=== PATIENT | male | born 1980 | race Hispanic/Latino ===

== ENCOUNTER 2017-07-07 22:38 | Inpatient (IN) | payer SELFPAY ==
[2017-07-07 23:49] LABS: Basophils % (Auto) 0.4 % (0.0-1.8); Eosinophils % (Auto) 4.1 % (0.0-4.3); Hematocrit 46.9 % (35.5-45.6); Hemoglobin 15.3 gm/dl (11.8-15.2); Mean Corpuscular HGB Conc 33 % (32-34); Mean Corpuscular Hemoglobin 29 pg (28-32); Mean Corpuscular Volume 90 fl (84-94); Platelet Count 261 K/mm3 (140-440); Red Blood Count 5.23 M/mm3 (3.65-5.03); Red Cell Distribution Width 13.1 % (13.2-15.2); White Blood Count 10.6 K/mm3 (4.5-11.0)
[2017-07-08 00:06] LABS: Anion Gap 19 mmol/L; BUN/Creatinine Ratio 20; Blood Urea Nitrogen 14 mg/dL (9-20); Calcium 9.1 mg/dL (8.4-10.2); Carbon Dioxide 24 mmol/L (22-30); Chloride 101.7 mmol/L (98-107); Glucose 131 mg/dL (75-100); Potassium 4.2 mmol/L (3.6-5.0); Sodium 140 mmol/L (137-145)
[2017-07-08] MEDS ORDERED: ASPIRIN PO ONE (01:41)
--- NOTE | 2017-07-08 01:42 | Emergency Department Report ---
ED Chest Pain HPI - General Chief Complaint: Chest Pain Stated Complaint: CHEST PAIN Source: patient Mode of arrival: Ambulatory Limitations: No Limitations - History of Present Illness Initial Comments: Patient is a 37-year-old male that presents to the ER with left-sided chest pain. Patient states the pain started at 1500 today and feels like a heaviness and pressure over his left chest. Patient have any significant medical history but patient has not seen a physician for multiple years. Patient denies shortness of breath. Patient states she took 2- 81 mg aspirin today at 1600 with minimal relief. Patient states the chest pain is constant, . But is worse with exertion and better with rest. MD Complaint: chest pain -: Sudden, hour(s) (8 hours) Onset: during rest, during exertion Pain Location: substernal, left chest Pain Radiation: none Severity: moderate Severity scale (0 -10): 5 Quality: tightness, heaviness, pressure Consistency: constant Improves With: rest, remaining still Worsens With: exertion, movement Treatments Prior to Arrival: none Aspirin use within the Past 7 Days: (1) Yes - Related Data On Oral Contraceptives: No Allergies Allergy/AdvReac Type Severity Reaction Status Date / Time mint leaves Allergy Itching Uncoded 07/07/17 23:15 Heart Score - HEART Score History: Slightly suspicious EKG: Normal Age: < 45 Risk factors: No known risk factors Troponin: < normal limit HEART Score: 0 - Critical Actions Critical Actions: 0-3 pts:0.9-1.7%risk of adverse cardiac event.Candidate for discharge ED Review of Systems ROS: Stated complaint: CHEST PAIN Other details as noted in HPI Comment: All other systems reviewed and negative Constitutional: no symptoms reported Respiratory: no symptoms reported Cardiovascular: as per HPI, chest pain Endocrine: no symptoms reported ED Past Medical Hx - Past Medical History Hx Asthma: Yes Additional medical history: kidney stones - Surgical History Additional Surgical History: tonsillectomy - Social History Smoking Status: Former Smoker Substance Use Type: None ED Physical Exam - General Limitations: No Limitations General appearance: alert, in no apparent distress - Head Head exam: Present: atraumatic, normocephalic - Eye Eye exam: Present: normal appearance - ENT ENT exam: Present: mucous membranes moist - Neck Neck exam: Present: normal inspection - Respiratory Respiratory exam: Present: normal lung sounds bilaterally. Absent: respiratory distress - Cardiovascular Cardiovascular Exam: Present: regular rate, normal rhythm. Absent: systolic murmur, diastolic murmur, rubs, gallop - GI/Abdominal GI/Abdominal exam: Present: soft, normal bowel sounds - Rectal Rectal exam: Present: deferred - Extremities Exam Extremities exam: Present: normal inspection - Back Exam Back exam: Present: normal inspection - Neurological Exam Neurological exam: Present: alert, oriented X3 - Psychiatric Psychiatric exam: Present: normal affect, normal mood - Skin Skin exam: Present: warm, dry, intact, normal color. Absent: rash ED Course Vital Signs 07/07/17 07/08/17 07/08/17 22:55 01:47 01:48 Temperature 98.2 F 98.7 F Pulse Rate 92 H 81 Respiratory 18 20 20 Rate Blood Pressure 140/91 Blood Pressure 122/71 [Right] O2 Sat by Pulse 98 98 98 Oximetry BRENDAN score - Brendan Score Age > 65: (0) No Aspirin use within the Past 7 Days: (1) Yes 3 or more CAD Risk Factors: (0) No 2 or more Angina events in past 24 hrs: (0) No Known CAD with more than 50% Stenosis: (0) No Elevated Cardiac Markers: (0) No ST Deviation Greater than 0.5mm: (0) No BRENDAN Score: 1 ED Medical Decision Making - Lab Data Result diagrams: 07/07/17 23:17 07/07/17 23:17 - EKG Data -: EKG Interpreted by Me EKG shows normal: sinus rhythm Rate: normal - EKG Data Interpretation: no acute changes, normal EKG - Medical Decision Making 37-year-old male presented with chest pain. Patient has had one set of EKGs and cardiac enzymes. Will consult hospitalist for admission to rule out ACS. Hospitalist agreed to admit. - Differential Diagnosis cp/ chest wall pain. acs, elevated bp Critical care attestation.: If time is entered above; I have spent that time in minutes in the direct care of this critically ill patient, excluding procedure time. ED Disposition Clinical Impression: Chest pain, Elevated blood pressure reading Disposition: OP ADMIT IP TO THIS HOSP Is pt being admited?: Yes Does the pt Need Aspirin: No Condition: Fair Time of Disposition: 01:51
[2017-07-08] MEDS ORDERED: PERCOCET 5/325 PO PRN (02:40)
[2017-07-08] MEDS ORDERED: TYLENOL PO PRN (02:40)
[2017-07-08] MEDS ORDERED: ZOFRAN IV PRN (02:40)
[2017-07-08] MEDS ORDERED: DULCOLAX PR PRN (02:40)
[2017-07-08] MEDS ORDERED: MILK OF MAGNESIA PO PRN (02:40)
--- NOTE | 2017-07-08 03:14 | History and Physical Report ---
History of Present Illness Date of examination: 07/08/17 History of present illness: 37-year-old man with no medical problems comes emergency room with complaints of chest pain located in the left chest which she describes a dull pain, constant, intensity 4/10, no radiation, he can identify exacerbating or relieving factors. Denies nausea vomiting, shortness breath, diaphoresis or palpitation. Stated he was moving heavy boxes a few days prior to chest pain Review Of Systems: Constitutional: no weight loss Ears, eyes, nose, mouth and throat: no nasal congestion, no nasal discharge, no sinus pressure, blurry vision, diplopia Neck: No neck pain or rigidity. Cardiovascular: no orthopnea, palpitations Respiratory: No shortness of breath, cough Gastrointestinal: no abdominal pain, hematochezia Genitourinary : no dysuria, frequency , hematuria Musculoskeletal: no muscle ache Integumentary: no rash, no pruritis Neurological: no parathesias, focal weakness Endocrine: no cold or heat intolerance, no polyuria or polydipsia Hematologic/Lymphatic: no easy bruising, no easy bleeding, no gland swelling Allergic/Immunologic: no urticaria, no angioedema. PAST MEDICAL HISTORY:none PAST SURGICAL HISTORY:none FAMILY HISTORY:hypertension, no CAD SOCIAL HISTORY: Denies alcohol, tobacco, drugs Medications and Allergies Allergies Allergy/AdvReac Type Severity Reaction Status Date / Time mint leaves Allergy Itching Uncoded 07/07/17 23:15 Home Medications Medication Instructions Recorded Confirmed Last Taken Type No Known Home Medications [No 07/08/17 07/08/17 Unknown History Reported Home Medications] Active Meds: Active Medications Acetaminophen (Tylenol) 650 mg PO Q4H PRN PRN Reason: Pain MILD(1-3)/Fever >100.5/JACKSON Bisacodyl (Dulcolax) 10 mg NM QDAY PRN PRN Reason: Constipation unrelieved by MOM Enoxaparin Sodium (Lovenox) 30 mg SUB-Q QDAY BETTY Magnesium Hydroxide (Milk Of Magnesia) 30 ml PO Q4H PRN PRN Reason: Constipation Ondansetron HCl (Zofran) 4 mg IV Q8H PRN PRN Reason: N/V unrelieved by Reglan Oxycodone/Acetaminophen (Percocet 5/325) 1 tab PO Q6H PRN PRN Reason: Pain, Moderate (4-6) Exam - Physical Exam Narrative exam: Gen. appearance: Patient lying in bed in no acute distress HEENT: Normocephalic/atraumatic, pupils equal round reactive to light, extra alkaline movement intact, no scleral icterus, no JVD or thyromegaly or nodule, neck is supple, mucous membrane moist, no erythema or exudate Heart: S1-S2, regular rate and rhythm Lungs: Clear to auscultation bilateral breathing comfortable Abdomen: Positive bowel sounds, nontender, nondistended, no organomegaly Extremities: No edema, cyanosis, clubbing Neuro:: Oriented 3 , cranial nerves II-12 intact, speech, motor intact Skin: No rash, nodules, warm dry - Constitutional Vitals: Temp Pulse Resp BP Pulse Ox 98.7 F 81 20 122/71 98 07/08/17 01:47 07/08/17 01:47 07/08/17 01:48 07/08/17 01:47 07/08/17 01:48 Results - Labs CBC & Chem 7: 07/07/17 23:17 07/07/17 23:17 Labs: Abnormal lab results 07/07/17 07/07/17 Range/Units 23:17 23:17 RBC 5.23 H (3.65-5.03) M/mm3 Hgb 15.3 H (11.8-15.2) gm/dl Hct 46.9 H (35.5-45.6) % RDW 13.1 L (13.2-15.2) % Lymph % (Auto) 40.1 H (13.4-35.0) % Donley % (Auto) 9.8 H (0.0-7.3) % Donley # 1.0 H (0.0-0.8) K/mm3 Creatinine 0.7 L (0.8-1.5) mg/dL Glucose 131 H (75-100) mg/dL - Imaging and Cardiology EKG: image reviewed Assessment and Plan Assessment Hypertensive urgency Chest pain Plan Admit to medicine Check cardiac enzymes, stress test Start IV hydralazine as needed DVT prophylaxis
[2017-07-08 04:14] LABS: Creatine Kinase 58 units/L (55-170); Creatine Kinase MB < 1.0 ng/mL (0.0-4.0)
[2017-07-08 07:31] VITALS: BP 125/77
[2017-07-08 07:46] LABS: Creatine Kinase 64 units/L (55-170)
[2017-07-08 07:50] LABS: Creatine Kinase MB < 1.0 ng/mL (0.0-4.0)
--- NOTE | 2017-07-08 08:57 | XRay Report ---
CHEST ONE VIEW INDICATION: Chest pain. COMPARISON: None similar. FINDINGS: Portable, single, frontal chest radiograph demonstrates normal cardiomediastinal silhouette. Clear lungs. Unremarkable bones. Extrinsic EKG leads. CONCLUSION: No acute disease in the chest. Thank you for the opportunity to participate in this patient's care.
[2017-07-08] MEDS ORDERED: LOVENOX SUB-Q SCH ×2 (10:00)
[2017-07-08] MEDS ORDERED: Fluarix Quad 2017-2018(36 MOS+ IM ONE (12:00)
--- NOTE | 2017-07-08 12:57 | Discharge Summary ---
Providers - Providers Date of Admission: 07/08/17 02:40 Date of discharge: 07/08/17 Attending physician: LEIGHANN MRAISCAL Primary care physician: [facility] [employer] Hospitalization Condition: Fair Disposition: DC-01 TO HOME OR SELFCARE Exam - Constitutional Vitals: Temp Pulse Resp BP Pulse Ox 98.5 F 82 18 125/77 97 07/08/17 03:52 07/08/17 04:45 07/08/17 04:47 07/08/17 03:52 07/08/17 03:52 Plan Activity: no restrictions Diet: low fat, low cholesterol, low salt Additional Instructions: 1.Follow up with PCP or [facility] in 1 week. Prescriptions: Ibuprofen 600 mg PO TID PRN #20 tablet PRN Reason: Pain
--- NOTE | 2017-07-09 00:23 | Treadmill Report ---
The patient exercised for 9 minutes of a Mervin protocol, completing stage 3 and achieving 10 mets. The peak heart rate was 162 beats per minute. The peak blood pressure was 148/84. There was no chest pain. Test was stopped for fatigue. Baseline ECG was sinus rhythm. With exercise, there were no ST changes of ischemia. No significant dysrhythmias were noted. CONCLUSION: 1. Very good exercise capacity. 2. No chest pain. 3. No ST changes of ischemia. 4. No significant dysrhythmias. 5. This is a normal exercise ECG test. JOB# [id number] CA/NTS
== END 2017-07-08 15:18 | disposition home or self-care (01) | DRG 305 ==
LOC: ED 22:38 → 4A 07-08 02:40
PROVIDERS: ADMIT Internal Medicine; ATTEND Internal Medicine
DX: I16.0 Hypertensive urgency (principal); Z82.49 Family history of ischemic heart disease and other diseases of the circulatory system; J45.909 Unspecified asthma, uncomplicated; Z87.891 Personal history of nicotine dependence; N20.0 Calculus of kidney
CPT/HCPCS: 36415; 71010; 80048; 82550; 82553; 84484; 85025; 90686; 93005; 93010; 93017; J1650